=== PATIENT | male | born 1975 | race Caucasian/White ===

== ENCOUNTER 2019-07-22 09:57 | Emergency (ER) | payer OTHER ==
[~2019-07-22] VITALS: Ht 185.4 cm; Wt 102.2 kg
[~2019-07-22 09:57] MED LIST: ANTIACID; BENA20TA54 PO; DOCU-180 PO; HTN; HYDR15SO3 PO; MULT-516 PO
[2019-07-22 10:12] VITALS: BP 139/73
--- NOTE | 2019-07-22 10:23 | NUR ---
PT HERE WITH C/O LOWER BACK PAIN SINCE SUNDAY, STATES PROGRESSIVE INCREASE IN PAIN. PT DENIES ANY TRAUMA OR KNOWN MOMENT OF NJURY BUT STATES POSSIBILITY OF USING INAPPROPRIATE LIFTING TECHNIQUES.
[2019-07-22] MEDS ORDERED: KETOROLAC 30 MG/1 ML ONE (10:41)
--- NOTE | 2019-07-22 10:43 | NUR ---
PT MEDICATED PER ORDERS.
[2019-07-22] MEDS ORDERED: KETOROLAC 30 MG/1 ML IM ONE (11:00)
--- NOTE | 2019-07-22 11:35 | NUR ---
Patient/Caregiver given discharge instructions and they have confirmed that they understand the instructions. Patient ambulatory with steady gait.
== END 2019-07-22 11:45 | disposition home or self-care (01) ==
LOC: ED 11:40
DX: S39.012A Strain of muscle, fascia and tendon of lower back, initial encounter (principal); I10 Essential (primary) hypertension; F17.200 Nicotine dependence, unspecified, uncomplicated; M51.36 Other intervertebral disc degeneration, lumbar region; Z90.89 Acquired absence of other organs; X58.XXXA Exposure to other specified factors, initial encounter; Y93.89 Activity, other specified; Y92.89 Other specified places as the place of occurrence of the external cause; Y99.8 Other external cause status
CPT/HCPCS: 72110; 96372; 99283; J1885

== ENCOUNTER 2020-07-03 11:45 | Emergency (ER) | payer OTHER ==
[~2020-07-03] VITALS: Ht 185.4 cm; Wt 94.9 kg
[2020-07-03 11:47] VITALS: BP 131/82
[2020-07-03] MEDS ORDERED: OXYcodone/APAP 10/325MG TABLET ONE (12:17)
[2020-07-03] MEDS ORDERED: KETOROLAC 30 MG/1 ML ONE (12:17)
[2020-07-03] MEDS ORDERED: OXYcodone/APAP 10/325MG TABLET PO ONE (12:30)
[2020-07-03] MEDS ORDERED: KETOROLAC 30 MG/1 ML IM ONE (12:30)
== END 2020-07-03 12:53 | disposition home or self-care (01) ==
LOC: ED 12:14
DX: M25.531 Pain in right wrist (principal); M10.9 Gout, unspecified; F17.210 Nicotine dependence, cigarettes, uncomplicated
CPT/HCPCS: 96372; 99283; J1885

== ENCOUNTER 2020-12-06 09:13 | Emergency (ER) | payer OTHER ==
[~2020-12-06] VITALS: Ht 185.4 cm; Wt 93.8 kg
[~2020-12-06 09:13] MED LIST changes: -DOCU-180 PO; +DOCU-192 PO
[2020-12-06 09:16] VITALS: BP 135/99
[2020-12-06] MEDS ORDERED: COLCHICINE 0.6 MG CAPSULE ONE ×2 (09:53→10:47)
[2020-12-06] MEDS ORDERED: KETOROLAC 30 MG/1 ML ONE (09:53)
[2020-12-06] MEDS ORDERED: KETOROLAC 30 MG/1 ML IM ONE (10:00)
[2020-12-06] MEDS ORDERED: COLCHICINE 0.6 MG CAPSULE PO ONE (10:00)
[2020-12-06] MEDS ORDERED: COLCHICINE 0.6 MG CAPSULE PO SCH (11:00)
[2020-12-06] MEDS ORDERED: PROPOFOL 10 MG/ML, 20ML ONE (11:31)
== END 2020-12-06 11:28 | disposition home or self-care (01) ==
LOC: ED 11:10
DX: M10.031 Idiopathic gout, right wrist (principal); M79.89 Other specified soft tissue disorders; I10 Essential (primary) hypertension
CPT/HCPCS: 96372; 99283; J1885